=== PATIENT | female | born 1950 ===

== ENCOUNTER 2024-08-24 05:35 | Day surgery (SDC) | payer OTHER ==
[2024-08-12 11:54] VITALS: BP 150/82
[2024-08-12 13:35] LABS: RH POSITIVE
[~2024-08-24] VITALS: Ht 160 cm; Wt 69.4 kg
[~2024-08-24 05:35] MED LIST: CALTRATE 600 +1 EAC1 PO; LEVOTHYROXINE25 MCG PO; LIPITOR20 MG PO; MULTIVITAMINA; ZESTRIL40 M1 PO
[2024-08-24] MEDS ORDERED: CEFAZOLIN SODIUM 1,000 MG VIAL IV ONE (09:45)
[2024-08-24] MEDS ORDERED: POVIDONE-IODINE 118 ML BOTT TOP ONE (09:45)
[2024-08-24] MEDS ORDERED: IBU800 MG PO (10:46)
[2024-08-24] MEDS ORDERED: BACTRIM DS TAB1 EACH PO (10:47)
[2024-08-24] MEDS ORDERED: SURFAK240 M1 PO (10:47)
[2024-08-24] MEDS ORDERED: NEURONTIN300 MG PO (10:47)
[2024-08-24] MEDS ORDERED: MORPHINE SULFATE 4 MG/ML VIAL IV ONE ×2 (10:50→11:20)
[2024-08-24] MEDS ORDERED: ONDANSETRON HCL 2 MG/ML VIAL IV ONE (11:50)
[2024-08-24] MEDS ORDERED: ENALAPRILAT DIHYDRATE 1.25 MG/ML VIAL IV ONE ×2 (12:20→12:50)
[2024-08-24] MEDS ORDERED: DEXAMETHASONE SODIUM PHOSPHATE 4 MG/ML VIAL IV ONE (13:20)
== END 2024-08-24 14:30 | disposition home or self-care (01) ==
LOC: CIR.AMB 05:35
PROVIDERS: ATTEND Obstetrics & Gynecology Gynecology
DX: N81.12 Cystocele, lateral (principal); N81.6 Rectocele; N81.5 Vaginal enterocele; I10 Essential (primary) hypertension; M19.90 Unspecified osteoarthritis, unspecified site; E03.8 Other specified hypothyroidism; I70.90 Unspecified atherosclerosis; F41.9 Anxiety disorder, unspecified